=== PATIENT | male | born 1955 | race Caucasian/White ===

== ENCOUNTER 2017-07-08 12:32 | Outpatient (CLI) | payer OTHER ==
[2017-07-08 17:31] LABS: BASOPHILS # (AUTO) 0.1 10^3/uL (0.0-0.1); BASOPHILS % (AUTO) 0.8 %; EOSINOPHILS # (AUTO) 0.1 10^3/uL (0.0-0.7); EOSINOPHILS % (AUTO) 2.1 %; HCT - HEMATOCRIT 47.4 % (42.0-52.0); HGB - HEMOGLOBIN 15.8 g/dL (14.0-18.0); LYMPHOCYTES # (AUTO) 1.3 10^3/uL (1.5-3.5); LYMPHOCYTES % (AUTO) 20.6 %; MEAN CORPUSCULAR HEMOGLOBIN 33.9 pg (27.0-31.0); MEAN CORPUSCULAR HGB CONC 33.3 g/dL (32.0-36.0); MEAN CORPUSCULAR VOLUME 101.7 fL (80.0-94.0); MEAN PLATELET VOLUME 9.6 fL (7.4-11.4); MONOCYTES # (AUTO) 0.7 10^3/uL (0.0-1.0); MONOCYTES % (AUTO) 10.3 %; NEUTROPHILS # (AUTO) 4.3 10^3/uL (1.5-6.6); NEUTROPHILS % (AUTO) 66.2 %; NUCLEATED RED BLOOD CELLS AUTO 0.1 /100WBC; RED BLOOD COUNT 4.66 10^6/uL (4.70-6.10); RED CELL DISTRIBUTION WIDTH 13.1 % (12.0-15.0); UNCORRECTED WHITE BLOOD COUNT 6.5 x10^3/uL; WHITE BLOOD COUNT 6.5 x10^3/uL (4.8-10.8)
[2017-07-08 17:41] LABS: ALBUMIN/GLOBULIN RATIO 1.5 (1.0-2.2); BILIRUBIN,TOTAL 0.9 mg/dL (0.2-1.0); CALCIUM 9.3 mg/dL (8.5-10.3); CREATININE 0.6 mg/dL (0.6-1.2); POTASSIUM 4.3 mmol/L (3.5-5.0); TOTAL PROTEIN 7.6 g/dL (6.7-8.2)
== END 2017-07-08 12:33 | disposition home or self-care (01) ==
LOC: LAB.F 12:32
PROVIDERS: ATTEND Physician Assistant Medical
DX: Z00.00 Encounter for general adult medical examination without abnormal findings (principal)
CPT/HCPCS: 36415; 80053; 85025

== ENCOUNTER 2018-07-21 09:44 | Outpatient (CLI) | payer OTHER ==
[2018-07-21 19:05] LABS: ALBUMIN 4.4 g/dL (3.2-5.5); ALBUMIN/GLOBULIN RATIO 1.5 (1.0-2.2); ALKALINE PHOSPHATASE 48 IU/L (42-121); ALT ALANINE AMINOTRANSFERASE 44 IU/L (10-60); AST ASPARTATE AMINOTRANSFERASE 44 IU/L (10-42); BILIRUBIN,TOTAL 0.8 mg/dL (0.2-1.0); BUN - BLOOD UREA NITROGEN 14 mg/dL (6-20); CARBON DIOXIDE - CO2 27 mmol/L (21-32); CHLORIDE 104 mmol/L (101-111); CHOL/HDL RATIO 2.9 (<5.0); CHOLESTEROL 207 mg/dL; CREATININE 0.7 mg/dL (0.6-1.2); GFR - MDRD 114 (>89); GLUCOSE 81 mg/dL (70-100); HDL CHOLESTEROL 71 mg/dL; LDL CHOLESTEROL,CALCULATED 113 mg/dL; LDL/HDL RATIO 1.6 (<3.6); SODIUM 141 mmol/L (135-145); TOTAL PROTEIN 7.4 g/dL (6.7-8.2); VLDL CHOLESTEROL 23 mg/dL
== END 2018-07-21 09:45 | disposition home or self-care (01) ==
LOC: LAB.F 09:44
PROVIDERS: ATTEND Internal Medicine
DX: E78.5 Hyperlipidemia, unspecified (principal); Z12.5 Encounter for screening for malignant neoplasm of prostate
CPT/HCPCS: 36415; 80053; 80061; 83721; 84153

== ENCOUNTER 2019-07-23 10:40 | Outpatient (CLI) | payer OTHER ==
[2019-07-23 17:09] LABS: BASOPHILS # (AUTO) 0.1 10^3/uL (0.0-0.1); BASOPHILS % (AUTO) 0.9 %; EOSINOPHILS # (AUTO) 0.1 10^3/uL (0.0-0.7); EOSINOPHILS % (AUTO) 2.1 %; HGB - HEMOGLOBIN 15.3 g/dL (14.0-18.0); LYMPHOCYTES # (AUTO) 1.5 10^3/uL (1.5-3.5); LYMPHOCYTES % (AUTO) 26.7 %; MEAN CORPUSCULAR HGB CONC 31.8 g/dL (32.0-36.0); MEAN CORPUSCULAR VOLUME 103.7 fL (80.0-94.0); MEAN PLATELET VOLUME 11.1 fL (7.4-11.4); MONOCYTES # (AUTO) 0.7 10^3/uL (0.0-1.0); MONOCYTES % (AUTO) 11.8 %; NEUTROPHILS # (AUTO) 3.3 10^3/uL (1.5-6.6); NEUTROPHILS % (AUTO) 58.1 %; PLT - PLATELET COUNT 259 10^3/uL (130-450); RED BLOOD COUNT 4.64 10^6/uL (4.70-6.10); WHITE BLOOD COUNT 5.7 x10^3/uL (4.8-10.8)
[2019-07-23 17:27] LABS: HB2 TOTAL 16.1 g/dL; HEMOGLOBIN A1C 0.57 g/dL; HEMOGLOBIN A1C % 5.4 % (4.6-6.2)
[2019-07-23 17:36] LABS: ALBUMIN 4.3 g/dL (3.2-5.5); ALBUMIN/GLOBULIN RATIO 1.3 (1.0-2.2); ALKALINE PHOSPHATASE 48 IU/L (42-121); ALT ALANINE AMINOTRANSFERASE 36 IU/L (10-60); AST ASPARTATE AMINOTRANSFERASE 36 IU/L (10-42); BILIRUBIN,TOTAL 0.5 mg/dL (0.2-1.0); BUN - BLOOD UREA NITROGEN 14 mg/dL (6-20); CALCIUM 9.1 mg/dL (8.5-10.3); CARBON DIOXIDE - CO2 28 mmol/L (21-32); CHLORIDE 105 mmol/L (101-111); CHOLESTEROL 220 mg/dL; CREATININE 0.6 mg/dL (0.6-1.2); GFR - MDRD 136 (>89); GLUCOSE 82 mg/dL (70-100); HDL CHOLESTEROL 74 mg/dL; LDL CHOLESTEROL,CALCULATED 122 mg/dL; LDL/HDL RATIO 1.6 (<3.6); SODIUM 142 mmol/L (135-145); TOTAL PROTEIN 7.6 g/dL (6.7-8.2); VLDL CHOLESTEROL 24 mg/dL
[2019-07-24 11:07] LABS: HEPATITIS C ANTIBODY NON-REACTIVE (NON-REACTIVE)
[2019-07-24 14:33] LABS: HIV AG/AB 4TH GEN NON-REACTIVE (NON-REACTIVE)
== END 2019-07-23 10:41 | disposition home or self-care (01) ==
LOC: LAB.S 10:40
PROVIDERS: ATTEND Registered Nurse
DX: Z00.00 Encounter for general adult medical examination without abnormal findings (principal); E78.5 Hyperlipidemia, unspecified
CPT/HCPCS: 36415; 80053; 80061; 83036; 83721; 84443; 85025; 86803; 87389

== ENCOUNTER 2020-07-31 11:32 | Outpatient (CLI) | payer OTHER ==
[2020-07-31 15:55] LABS: PSA FREE 0.329 ng/mL (0.16-2.81)
[2020-07-31 15:56] LABS: PSA TOTAL 1.49 ng/mL (0.000-2.000)
== END 2020-07-31 11:33 | disposition home or self-care (01) ==
LOC: LAB.S 11:32
PROVIDERS: ATTEND Registered Nurse
DX: Z12.5 Encounter for screening for malignant neoplasm of prostate (principal)
CPT/HCPCS: 36415; 84153; 84154

== ENCOUNTER 2020-08-31 09:38 | Outpatient (CLI) | payer OTHER ==
--- NOTE | 2020-08-31 16:57 | Ultrasound Report ---
PROCEDURE: Aorta Screening INDICATIONS: HISTORY TOBACCO USE TECHNIQUE: Real time scanning was performed of the aorta and iliac arteries, with image documentatio n. COMPARISON: None available FINDINGS: Aorta: Proximal aortic diameter measures 2.8 x 2.7 cm. Mid-aorta measures 2.3 x 2.3 cm. Distal aor tic diameter is 2 x 1.4 cm. Iliac arteries: Right common iliac artery measures 1.2 x 1.1 cm. Left common iliac artery measures 1.1 x 1 cm. Overall scan quality is limited by bowel gas. IMPRESSION: Negative for aneurysm. Reviewed by: Michele Lozano MD on 08/31/2020 3:56 PM AKDT Approved by: Michele Lozano MD on 08/31/2020 3:56 PM AKDT Station ID: [id number]
== END 2020-08-31 09:39 | disposition home or self-care (01) ==
LOC: DI 09:38
PROVIDERS: ATTEND Registered Nurse
DX: Z87.891 Personal history of nicotine dependence (principal)
CPT/HCPCS: 76706

== ENCOUNTER 2022-01-29 13:35 | Outpatient (CLI) | payer MEDICARE ==
--- NOTE | 2022-01-29 14:36 | Ultrasound Report ---
PROCEDURE: Aorta Screening INDICATIONS: HIST OF SMOKING TECHNIQUE: Real time scanning was performed of the aorta and iliac arteries, with image documentatio n. COMPARISON: August 31, 2020 FINDINGS: Aorta: Proximal aortic diameter measures 2.9 x 2.8 cm. Mid-aorta measures 1.7 x 1.8 cm. Distal aor tic diameter is 1.4 x 1.5 cm. Atheromatous plaque is seen in the mid to distal aorta. Iliac arteries: Right common iliac artery measures 0.9 x 0.9 cm. Left common iliac artery measures 1.1 x 0.9 cm. IMPRESSION: No evidence of abdominal aortic aneurysm. Reviewed by: Jesús Tobar MD on 01/29/2022 2:34 PM PDT Approved by: Jesús Tobar MD on 01/29/2022 2:34 PM PDT Station ID: [id number]
== END 2022-01-29 13:36 | disposition home or self-care (01) ==
LOC: DI 13:35
PROVIDERS: ATTEND Registered Nurse
DX: Z13.6 Encounter for screening for cardiovascular disorders (principal); Z87.891 Personal history of nicotine dependence

== ENCOUNTER 2022-12-24 08:00 | Outpatient (CLI) | payer MEDICARE ==
--- NOTE | 2022-12-24 16:43 | XRAY Report ---
PROCEDURE: Wrist 3 View BILAT INDICATIONS: BILATERAL PAIN OF CMC 1ST DIGIT TECHNIQUE: 3 views of the wrist were acquired. COMPARISON: None FINDINGS: Bones: No fractures or dislocations. Osteoarthritic changes are noted involving bilateral scaphotrap ezial joint and the first CMC joint worse on the left side. No gross bony erosive changes. No suspici ous bony lesions. Scaphoid view: Scaphoid is grossly intact. No evidence of avascular necrosis. Soft tissues: No suspicious soft tissue calcifications. 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 No fracture or dislocat ion. No evidence of avascular necrosis. Reviewed by: Kar Arnett MD on 12/24/2022 4:42 PM PST Approved by: Kar Arnett MD on 12/24/2022 4:42 PM PST Station ID: [id number]
== END 2022-12-24 23:59 | disposition home or self-care (01) ==
LOC: DI.S 08:00
PROVIDERS: ATTEND Physician Assistant
DX: M19.032 Primary osteoarthritis, left wrist (principal); M19.031 Primary osteoarthritis, right wrist; M18.0 Bilateral primary osteoarthritis of first carpometacarpal joints

== ENCOUNTER 2023-03-24 08:26 | Day surgery (SDC) | payer MEDICARE ==
--- NOTE | 2023-03-24 07:15 | ANESTHESIA ---
Pre-Anesthesia VS, & Labs - Diagnosis hx colon polyp - Procedure colonoscopy Height: 5 ft 10 in - NPO >8 hours Last Fluid Intake: am prep - Lab Results Lab results reviewed: Yes Home Medications and Allergies Aspirin 325 mg PO DAILY 03/17/15 Lovastatin 20 mg PO DAILY 03/17/15 Allergies/Adverse Reactions: Allergies Allergy/AdvReac Type Severity Reaction Status Date / Time codeine AdvReac Nausea Verified 03/23/23 14:36 Anes History & Medical History - Anesthetic History Anesthesia Complications: reports: No previous complications Family history of Anesthesia Complications: Denies Family history of Malignant Hyperthermia: Denies - Medical History Cardiovascular: reports: High cholesterol Pulmonary: reports: None Gastrointestinal: reports: None, Hemorrhoids Urinary: reports: None Musculoskeletal: reports: Osteoarthritis Endocrine/Autoimmune: reports: None Skin: reports: None History of Cancer?: No - Surgical History General: reports: Colonoscopy Eyes Ears Nose Throat (EENT): reports: Cataracts, Detached retina repair Exam General: Alert, Oriented x3, Cooperative Dental: WNL Mouth Openin Fingerbreadth Neck Mobility: Normal Mallampati classification: II Thyromental Distance: 4-6 cm Respiratory: Lungs clear, Normal breath sounds, No respiratory distress Cardiovascular: Regular rate Neurological: Normal speech Mental/Cognitive Status: Alert/Oriented X3, Normal for patient Plan Anesthesia Type: Total IV Consent for Procedure(s) Verified and Reviewed: Yes Code Status: Attempt Resuscitation ASA classification: 2-Mild systemic disease Is this case an emergency?: No
[2023-03-24] MEDS ORDERED: LACTATED RINGERS 1,000 ML IV ONE ×2 (08:28→10:48)
[2023-03-24] MEDS ORDERED: MIDAZOLAM 2 MG/2 ML VIAL ONE (09:44)
[2023-03-24] MEDS ORDERED: PROPOFOL 500 MG/50 ML 500 MG/50 ML VIAL ONE (09:44)
[2023-03-24] MEDS ORDERED: PROPOFOL 200 MG/20 ML VIAL IVP ONE (10:31)
[2023-03-24 11:16] VITALS: BP 133/79
--- NOTE | 2023-03-24 11:18 | ANESTHESIA POST OP EVALUATION ---
Anesthesia Post Eval - Post Anesthesia Eval Vitals: Last Vital Signs Temp 36.5 C 03/24/23 11:10 Pulse 70 03/24/23 11:10 Resp 16 03/24/23 11:10 BP 133/79 H 03/24/23 11:10 Pulse Ox 98 03/24/23 11:10 O2 Flow Rate 0 03/24/23 08:45 CV Function Including HR & BP: Stable Pain Control: Satisfactory Nausea & Vomiting: Negative Mental Status: Baseline Respiratory Status: Airway Patent Hydration Status: Satisfactory Anesthesia Complications: None
== END 2023-03-24 08:27 | disposition home or self-care (01) ==
LOC: SDS 08:26
PROVIDERS: ATTEND Surgery
PROC: 0DBM8ZZ Excision of Descending Colon, Via Natural or Artificial Opening Endoscopic (ICD-10-PCS; 2023-03-24)
PROC: 0DBK8ZZ Excision of Ascending Colon, Via Natural or Artificial Opening Endoscopic (ICD-10-PCS; principal; 2023-03-24 09:30)
DX: Z12.11 Encounter for screening for malignant neoplasm of colon (principal); D12.2 Benign neoplasm of ascending colon; D12.4 Benign neoplasm of descending colon; K57.30 Diverticulosis of large intestine without perforation or abscess without bleeding
CPT/HCPCS: 45380; 45385; J7120

== ENCOUNTER 2023-12-30 11:15 | Outpatient (CLI) | payer MEDICARE ==
[2023-12-30 14:37] LABS: BASOPHILS % (AUTO) 0.9 %; EOSINOPHILS # (AUTO) 0.1 10^3/uL (0.0-0.7); EOSINOPHILS % (AUTO) 2.7 %; HCT - HEMATOCRIT 45.9 % (42.0-52.0); HGB - HEMOGLOBIN 14.7 g/dL (14.0-18.0); LYMPHOCYTES # (AUTO) 1.8 10^3/uL (1.5-3.5); LYMPHOCYTES % (AUTO) 39.8 %; MEAN CORPUSCULAR HEMOGLOBIN 33.5 pg (27.0-31.0); MEAN CORPUSCULAR VOLUME 104.6 fL (80.0-94.0); MEAN PLATELET VOLUME 10.8 fL (7.4-11.4); MONOCYTES # (AUTO) 0.4 10^3/uL (0.0-1.0); MONOCYTES % (AUTO) 9.3 %; NEUTROPHILS # (AUTO) 2.1 10^3/uL (1.5-6.6); NEUTROPHILS % (AUTO) 47.1 %; PLT - PLATELET COUNT 242 10^3/uL (130-450); RED BLOOD COUNT 4.39 10^6/uL (4.70-6.10); RED CELL DISTRIBUTION WIDTH 12.9 % (12.0-15.0); WHITE BLOOD COUNT 4.5 x10^3/uL (4.8-10.8)
[2023-12-30 16:17] LABS: ALBUMIN 4.4 g/dL (3.2-5.5); ALBUMIN/GLOBULIN RATIO 1.6 (1.0-2.2); ALKALINE PHOSPHATASE 47 IU/L (42-121); ALT ALANINE AMINOTRANSFERASE 33 IU/L (10-60); AST ASPARTATE AMINOTRANSFERASE 32 IU/L (10-42); BILIRUBIN,TOTAL 0.5 mg/dL (0.2-1.0); BUN - BLOOD UREA NITROGEN 17 mg/dL (6-20); CALCIUM 9.5 mg/dL (8.5-10.3); CARBON DIOXIDE - CO2 30 mmol/L (21-32); CHLORIDE 106 mmol/L (101-111); CHOL/HDL RATIO 2.2 (<5.0); CHOLESTEROL 210 mg/dL; CREATININE 0.6 mg/dL (0.6-1.3); GFR - MDRD 134 (>89); GLUCOSE 77 mg/dL (74-104); HDL CHOLESTEROL 97 mg/dL; LDL CHOLESTEROL,CALCULATED 95 mg/dL; POTASSIUM 4.2 mmol/L (3.5-4.5); SODIUM 143 mmol/L (135-145); TOTAL PROTEIN 7.1 g/dL (6.4-8.9); TRIGLYCERIDES 91 mg/dL (48-352); VLDL CHOLESTEROL 18 mg/dL
[2023-12-30 16:29] LABS: THYROID STIMULATING HORMONE 0.74 uIU/mL (0.34-5.60)
== END 2023-12-30 11:16 | disposition home or self-care (01) ==
LOC: LAB.S 11:15
PROVIDERS: ATTEND Registered Nurse
DX: Z13.228 Encounter for screening for other metabolic disorders (principal); Z13.220 Encounter for screening for lipoid disorders; Z13.29 Encounter for screening for other suspected endocrine disorder; Z13.0 Encounter for screening for diseases of the blood and blood-forming organs and certain disorders involving the immune mechanism
CPT/HCPCS: 36415; 80053; 80061; 83721; 84443; 85025

== ENCOUNTER 2024-05-21 10:38 | Outpatient (CLI) | payer MEDICARE ==
[2024-05-21] MEDS ORDERED: iohexoL-300 150 ML BOTTLE ONE (11:05)
[2024-05-21 11:15] LABS: CREATININE 0.6 mg/dL (0.6-1.3)
[2024-05-21] MEDS: iohexoL-300 100 ML VIAL IVP ONE (15:36)
[2024-05-21] MEDS: iohexoL-300 150 ML BOTTLE IVP ONE (15:51)
--- NOTE | 2024-05-22 19:55 | CT Report ---
PROCEDURE: Angio Lower Extremity BL INDICATIONS: INTERMITTENT CLAUDICATION TECHNIQUE: Imaging only occurred from just above the knees to the feet. There was inadequate contrast in this region. CONTRAST: See chart note COMPARISON: None. FINDINGS: The images provided are nondiagnostic. However, it is clear that there is calcification bilaterally f illing the lumen of the popliteal arteries which results in at least short segment popliteal occlusio n. IMPRESSION: 1. The study is inadequate. If the history is claudication, the appropriate CT imaging is CTA of the aorta and pelvis and runoff vessels. Patient refused to return for a complete evaluation. 2. This study, which only looked at from just above the knees to the feet is nondiagnostic. There is no contrast present in the images. However, it is clear that there is at least short segment of bilat eral popliteal calcified occlusion. Recommend either CTA aortogram and runnoff or MRA aorta and runoff. Reviewed by: Eric aPredes MD on 05/22/2024 7:54 PM PDT Approved by: Eric Paredes MD on 05/22/2024 7:54 PM PDT Station ID: [id number]
== END 2024-05-21 10:39 | disposition home or self-care (01) ==
LOC: DI 10:38
PROVIDERS: ATTEND Registered Nurse
DX: I73.9 Peripheral vascular disease, unspecified (principal)
CPT/HCPCS: 36415; 82565

== ENCOUNTER 2024-06-12 11:09 | Outpatient (CLI) | payer MEDICARE ==
[2024-06-12] MEDS ORDERED: iohexoL-300 100 ML VIAL ONE (11:44)
[2024-06-12] MEDS ORDERED: iohexoL-300 150 ML BOTTLE ONE (11:44)
--- NOTE | 2024-06-12 15:04 | CT Report ---
PROCEDURE: Angio Abdomen Runoff BL INDICATIONS: INTERMITTENT CLAUDICATION CONTRAST: Omni 300 125ml TECHNIQUE: After the administration of intravenous contrast, a CT scan of the abdomen, pelvis and lower extremit ies (to the feet) was performed. Images were recorded and evaluated at appropriate window settings. R eformats: coronal and sagittal. For radiation dose reduction, the following was used: automated expos ure control, adjustment of mA and/or kV according to patient size. COMPARISON: CT bilateral lower extremity without contrast on May 21, 2024. FINDINGS: Image quality: Excellent. Abdominal aorta: Abdominal aorta is normal in caliber without aneurysm. Marked atherosclerotic calci fication of the abdominal aorta, notably in the infrarenal segment. Celiac artery, SMA and SHELTON as wel l as bilateral renal arteries are patent with no high-grade stenosis. Mild stenosis at the origins of the SMA bilateral renal arteries and [place] secondary to atherosclerosis. Right lower pole accessory re nal artery, normal variant. Right lower extremity: Common iliac artery: Patent with no high-grade stenosis. Moderate atherosclerotic disease. External iliac artery: Patent with no high-grade stenosis. No significant atherosclerotic disease. Common femoral artery: Marked atherosclerotic disease with atherosclerotic plaque resulting in a sten osis of at least 80% in the proximal and distal segments (4/161, 168). Superficial femoral artery: Patent with focal high-grade stenosis in the distal SFA of greater than 9 0% secondary to focal atherosclerotic plaque (4/232). Distal SFA demonstrates moderate atheroscleroti c plaque with mild multifocal stenoses. Proximal to mid SFA demonstrates mild atherosclerotic plaque and multifocal stenoses. Popliteal artery: Proximal popliteal artery demonstrates stenosis of approximately 50% (4/279). Mid p opliteal artery demonstrates complete chronic occlusion (4/292-310). Distal reconstitution of the pop liteal artery via geniculate collaterals. Anterior tibial artery: Patent with mild multifocal stenoses. TP trunk: Occluded. Peroneal artery: Diminutive in caliber albeit patent with multifocal stenoses, notably in the proxima l segment. Posterior tibial artery: Patent with multifocal stenoses, notably in the proximal segment. Left lower extremity: Common iliac artery: Patent with no high-grade stenosis. Moderate atherosclerotic disease. External iliac artery: Patent with no high-grade stenosis. No significant atherosclerotic disease. Common femoral artery: Marked atherosclerotic disease with atherosclerotic plaque resulting in a sten osis of at least 80% in the distal segment (4/168). Superficial femoral artery: Patent with no high-grade stenosis. Distal SFA demonstrates moderate athe rosclerotic plaque with focal stenosis of approximately 75 % (4/253). Popliteal artery: Proximal and mid popliteal artery are patent with mild to moderate atherosclerotic disease and mild multifocal stenoses. Mid to distal popliteal artery demonstrates high grade/near com plete occlusion (4/295-299). Distal popliteal artery demonstrates mild multifocal stenoses with ather osclerotic calcification. Anterior tibial artery: Patent with mild multifocal stenoses. TP trunk: Diminutive in caliber albeit patent with high-grade stenosis secondary to moderate to marke d atherosclerotic disease. Peroneal artery: Diminutive in caliber albeit patent with multifocal stenoses. Posterior tibial artery: Patent with multifocal stenoses. OTHER: Arterial phase imaging limits evaluation of the visceral organs. Lung bases and heart: Respiratory motion limits sensitivity for a subcentimeter pulmonary nodule. Wit hin these limitations, no focal pulmonary consolidation. Atelectasis bilaterally. No basilar effusion . Liver: Diffuse hypoattenuation of the liver. No solid mass. Gallbladder and biliary tree: No radiopaque stones or wall thickening. No biliary dilation. Spleen: No splenomegaly. Pancreas: No pancreatic ductal dilation. Adrenals: No adrenal nodule. Kidneys and ureters: No hydronephrosis. Right upper pole anechoic simple cyst. No renal cystic lesion which requires follow up. No solid mass. Bowel and peritoneum: No hiatal hernia. Stomach is decompressed, limiting evaluation, but appears tia ssly normal. Small and large bowel is normal in caliber, without obstruction. Normal appendix (4/109) . Lymph nodes: No central or retroperitoneal adenopathy. Reproductive organs: Unremarkable. Bladder: No abnormal wall thickening, accounting for underdistention. Pelvic lymph nodes: No pelvic adenopathy by size criteria. Bones: No aggressive osseous abnormality. No acute fractures. Moderate multilevel degenerative change s of the spine. Other: No significant ventral or inguinal hernia. IMPRESSION: Arterial phase imaging limits evaluation of the visceral organs. 1.Right lower extremity arterial vasculature demonstrates high-grade stenoses in the proximal and dis diane common femoral artery and distal SFA. Mid popliteal artery demonstrates chronic complete occlusio n with distal reconstitution via geniculate collaterals. TP trunk is occluded. Patent 3 vessel runoff . 2.Left lower extremity arterial vasculature demonstrates high-grade stenoses in the distal common fem oral artery and TP trunk. Mid to distal popliteal artery demonstrates high-grade/near complete occlus ion. Patent 3 vessel runoff. 3.Diffuse hypoattenuation of the liver which is nonspecific and may be secondary to steatosis. Reviewed by: Aurelio Hopper MD on 06/12/2024 3:03 PM PDT Approved by: Aurelio Hopper MD on 06/12/2024 3:03 PM PDT Station ID: [id number]
[2024-06-12] MEDS: iohexoL-300 150 ML BOTTLE IVP ONE (15:28)
== END 2024-06-12 11:10 | disposition home or self-care (01) ==
LOC: DI 11:09
PROVIDERS: ATTEND Registered Nurse
DX: I70.201 Unspecified atherosclerosis of native arteries of extremities, right leg (principal); I70.202 Unspecified atherosclerosis of native arteries of extremities, left leg